=== PATIENT | male | born 1960 | race African-American/Black ===

== ENCOUNTER 2019-03-18 22:13 | Inpatient (IN) ==
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
[2019-03-18] MEDS ORDERED: NS 1000 ML 1,000 ML IV ONE (22:49)
[2019-03-18] MEDS ORDERED: ZOFRAN INJ 4 MG VIAL IVP ONE (22:50)
[2019-03-18] MEDS ORDERED: NS 1000 ML 1,000 ML ONE (22:51)
[2019-03-18] MEDS ORDERED: ZOFRAN INJ 4 MG VIAL ONE (23:02)
[2019-03-18] MEDS ORDERED: ZyrTEC TAB 10 MG ONE (23:02)
[2019-03-18] MEDS ORDERED: ZyrTEC TAB 10 MG PO ONE (23:05)
--- NOTE | 2019-03-18 23:11 | RAD ---
HISTORY: Fever, chills, headache, cough Study: Two views the chest Comparison: None Findings: The trachea is midline. The cardiac silhouette is unremarkable. Coarse interstitial changes are seen within both lungs. No evidence of focal consolidation is appreciated.. IMPRESSION: 1. Interstitial changes without evidence of focal consolidation. Reported By:
[2019-03-18 23:18] LABS: BASOPHILS # (AUTO) 0.1 X10^3/uL (0.0-0.1); BASOPHILS % (AUTO) 0.4 % (0.2-1.0); EOSINOPHILS % (AUTO) 0.1 % (0.9-2.9); HEMATOCRIT 26.7 % (42.0-54.0); HEMOGLOBIN 8.5 g/dL (13.5-18.0); LYMPHOCYTES # (AUTO) 0.9 X10^3/uL (1.3-2.9); LYMPHOCYTES % (AUTO) 4.6 % (21.0-51.0); MEAN CORPUSCULAR HEMOGLOBIN 24.8 pg (27.0-34.0); MEAN CORPUSCULAR HGB CONC 31.7 g/dL (33.0-35.0); MEAN CORPUSCULAR VOLUME 78.4 fL (80.0-100.0); MEAN PLATELET VOLUME 8.3 fL (7.4-11.0); MONOCYTES # (AUTO) 2.6 x10^3/uL (0.3-0.8); MONOCYTES % (AUTO) 13.2 % (0.0-13.0); NEUTROPHILS # (AUTO) 16.1 x10^3/uL (2.2-4.8); NEUTROPHILS % (AUTO) 81.7 % (42.0-75.0); PLATELET COUNT 279 X10^3/uL (150.0-450.0); RED CELL DISTRIBUTION WIDTH 25.2 % (11.6-16.5); WHITE BLOOD COUNT 19.7 X10^3/uL (3.6-10.0)
[2019-03-18 23:19] LABS: BLOOD UREA NITROGEN 12 mg/dL (7-18); CALCIUM 8.9 mg/dL (8.5-10.1); CARBON DIOXIDE 26.1 mmol/L (21-32); CHLORIDE 97 mmol/L (98-107); COR NA(FOR HYPERGLY) 139 mmol/L (136-145); CREATININE 1.11 mg/dL (0.70-1.30); SODIUM 138 mmol/L (136-145); eGFR NON BLACK RACES > 60 (>60)
[2019-03-18 23:27] LABS: HYPOCHROMASIA 1+; PLATELET MORPHOLOGY COMMENT NORMAL (NORMAL)
[2019-03-18 23:28] LABS: ANISOCYTOSIS 3+; OVALOCYTES PRESENT; TARGET CELLS PRESENT
[2019-03-18] MEDS ORDERED: ZITHROMAX INJ 500 MG VIAL ONE (23:32)
[2019-03-18] MEDS ORDERED: NS 250 ML IV 250 ML ONE (23:32)
[2019-03-18] MEDS ORDERED: ROCEPHIN VIAL 1 GRAM IVP ONE (23:32)
[2019-03-18] MEDS ORDERED: ZITHROMAX INJ 500 MG VIAL 500 MG in NS 250 ML IV 250 ML IV SCH (23:45)
[2019-03-18 23:52] LABS: MYCOPLASMA PNEUMONIAE IGM AB NEGATIVE (NEGATIVE)
[2019-03-19] MEDS ORDERED: APLISOL ID ONE ×2 (00:27→21:27)
[2019-03-19 01:29] LABS: LACTIC ACID 1.1 mmol/L (0.4-2.0)
[2019-03-19] MEDS ORDERED: ROCEPHIN VIAL 1 GRAM ONE (01:46)
[2019-03-19] MEDS: NS 1000 ML 1,000 ML IV SCH ×3 (01:51→20:33)
[2019-03-19 02:18] LABS: BILIRUBIN,URINE NEGATIVE (NEGATIVE); BLOOD/HEMOGLOBIN,URINE 2+ (NEGATIVE); GLUCOSE, URINE NEGATIVE (NEGATIVE); KETONES,URINE NEGATIVE (NEGATIVE); LEUKOCYTE ESTERASE ,URINE 1+ (NEGATIVE); NITRITES,URINE NEGATIVE (NEGATIVE); PROTEIN,URINE 2+ (NEGATIVE); UROBILINOGEN,URINE 2+ (NORMAL)
[2019-03-19 02:22] LABS: APPEARANCE,URINE CLEAR (CLEAR); COLOR,URINE AMBER (YELLOW)
[2019-03-19 02:23] LABS: AMORPHOUS SEDIMENT,UR 1+ /HPF (NEGATIVE); BACTERIA,URINE NEGATIVE /HPF (NEGATIVE); RBC,URINE 0-2 /HPF (NONE SEEN); SQUAMOUS EPITHELIAL CELL,UR RARE /HPF (NEGATIVE)
[2019-03-19] MEDS ORDERED: NS 1000 ML 1,000 ML IV ONE (03:47)
[2019-03-19 04:15] VITALS: BMI 21.4
[2019-03-19 06:33] LABS: BASOPHILS % (AUTO) 0.2 % (0.2-1.0); EOSINOPHILS % (AUTO) 0.1 % (0.9-2.9); HEMATOCRIT 21.8 % (42.0-54.0); LYMPHOCYTES % (AUTO) 4.7 % (21.0-51.0); MEAN CORPUSCULAR HEMOGLOBIN 24.9 pg (27.0-34.0); MEAN CORPUSCULAR HGB CONC 31.8 g/dL (33.0-35.0); MEAN CORPUSCULAR VOLUME 78.3 fL (80.0-100.0); MEAN PLATELET VOLUME 8.5 fL (7.4-11.0); MONOCYTES # (AUTO) 3.3 x10^3/uL (0.3-0.8); MONOCYTES % (AUTO) 15.2 % (0.0-13.0); NEUTROPHILS # (AUTO) 17.4 x10^3/uL (2.2-4.8); NEUTROPHILS % (AUTO) 79.8 % (42.0-75.0); PLATELET COUNT 211 X10^3/uL (150.0-450.0); RED BLOOD COUNT 2.79 X10^6/uL (4.7-6.0); RED CELL DISTRIBUTION WIDTH 24.5 % (11.6-16.5); WHITE BLOOD COUNT 21.8 X10^3/uL (3.6-10.0)
[2019-03-19 06:53] LABS: PLATELET MORPHOLOGY COMMENT NORMAL (NORMAL)
[2019-03-19 06:54] LABS: ANISOCYTOSIS 3+; HYPOCHROMASIA SLIGHT
[2019-03-19] MEDS ORDERED: LOPRESSOR TAB 25 MG PO SCH (09:00)
[2019-03-19] MEDS: TYLENOL 325 MG TAB PO PRN ×2 (09:05→20:34)
[2019-03-19] MEDS: VANCOMYCIN HCL 1 GM VIAL 1 G in D5W 250 ML IV 250 ML IV SCH ×2 (09:30→20:33)
[2019-03-19] MEDS: VIBRAMYCIN 100 MG in D5W 250 ML IV 250 ML IV SCH ×2 (11:19→20:33)
--- NOTE | 2019-03-19 11:27 | CT ---
CT SINUSES WITHOUT IV CONTRAST HISTORY: Fever and headache Comparison: None Technique: Multiple axial images of the paranasal sinuses were obtained without the administration of IV contrast. Coronal and sagittal reformats were performed and reviewed. Dose reduction techniques including Automated Exposure Control (AEC) and adjustment of mA and kV were utlized. Findings: The maxillary sinuses, anterior and posterior ethmoid air cells, sphenoid sinuses, and frontal sinuses demonstrate no evidence for mucosal inflammatory disease. The nasal septum is midline. The ostiomeatal unit on the right and left are widely patent without inflammatory change. The left and right frontal recesses are unremarkable in their appearance. Visualized portions of the posterior fossa and intracranial structures are unremarkable as well. IMPRESSION: 1. Unremarkable CT of the paranasal sinuses. Reported By:
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
[2019-03-19] MEDS: LOPRESSOR TAB 25 MG PO SCH (20:34)
[2019-03-19] MEDS: NORCO 5/325 MG TAB PO PRN (21:05)
[2019-03-19] MEDS ORDERED: ZyrTEC TAB 10 MG PO ONE (22:51)
[2019-03-20 05:29] LABS: BASOPHILS # (AUTO) 0.2 X10^3/uL (0.0-0.1); BASOPHILS % (AUTO) 0.7 % (0.2-1.0); EOSINOPHILS % (AUTO) 0.1 % (0.9-2.9); LYMPHOCYTES # (AUTO) 0.7 X10^3/uL (1.3-2.9); LYMPHOCYTES % (AUTO) 2.5 % (21.0-51.0); MEAN CORPUSCULAR HEMOGLOBIN 25.1 pg (27.0-34.0); MEAN CORPUSCULAR VOLUME 78.2 fL (80.0-100.0); MEAN PLATELET VOLUME 8.6 fL (7.4-11.0); MONOCYTES # (AUTO) 3.9 x10^3/uL (0.3-0.8); MONOCYTES % (AUTO) 14.4 % (0.0-13.0); NEUTROPHILS # (AUTO) 22.3 x10^3/uL (2.2-4.8); NEUTROPHILS % (AUTO) 82.3 % (42.0-75.0); PLATELET COUNT 169 X10^3/uL (150.0-450.0); RED BLOOD COUNT 2.47 X10^6/uL (4.7-6.0); RED CELL DISTRIBUTION WIDTH 24.7 % (11.6-16.5); WHITE BLOOD COUNT 27.2 X10^3/uL (3.6-10.0)
[2019-03-20 05:37] LABS: ALANINE AMINOTRANSFERASE 78 Units/L (12-78); ALBUMIN 1.9 g/dL (3.4-5.0); ALKALINE PHOSPHATASE 144 Units/L (46-116); ASPARTATE AMINO TRANSFERASE 63 Units/L (15-37); BLOOD UREA NITROGEN 14 mg/dL (7-18); CARBON DIOXIDE 26.3 mmol/L (21-32); CHLORIDE 101 mmol/L (98-107); COR CA(FOR HYPOALB) 9.7 mg/dL (8.5-10.1); COR NA(FOR HYPERGLY) 137 mmol/L (136-145); CREATININE 1.13 mg/dL (0.70-1.30); SODIUM 137 mmol/L (136-145); eGFR NON BLACK RACES > 60 (>60)
[2019-03-20] MEDS: NS 1000 ML 1,000 ML IV SCH ×3 (05:49→18:14)
[2019-03-20 05:56] LABS: BAND NEUTROPHILS % 17 % (0-10); HEMATOCRIT 19.3 % (42.0-54.0); HEMOGLOBIN 6.2 g/dL (13.5-18.0)
[2019-03-20 05:57] LABS: ANISOCYTOSIS 3+; HYPOCHROMASIA 1+; PLATELET MORPHOLOGY COMMENT NORMAL (NORMAL)
[2019-03-20] MEDS: LOPRESSOR TAB 25 MG PO SCH ×2 (08:31→21:22)
[2019-03-20] MEDS: VANCOMYCIN HCL 1 GM VIAL 1 G in D5W 250 ML IV 250 ML IV SCH ×2 (08:32→21:21)
[2019-03-20] MEDS ORDERED: BENADRYL INJ 50 MG VIAL IVP ONE (10:09)
[2019-03-20] MEDS: TYLENOL 325 MG TAB PO PRN ×2 (10:44→23:23)
[2019-03-20] MEDS ORDERED: NS 500 ML IV 500 ML ONE (10:47)
[2019-03-20] MEDS: VIBRAMYCIN 100 MG in D5W 250 ML IV 250 ML IV SCH ×2 (12:00→21:12)
--- NOTE | 2019-03-20 12:25 | CT ---
HISTORY: Sepsis Study: CT chest with contrast Comparison: None Technique: Multiple axial images of the chest were obtained from the thoracic inlet to the upper abdomen after the administration of IV contrast. Findings: The mediastinum does not demonstrate significant pathological lymphadenopathy. There is no paracardial effusion observed. The thoracic aorta is normal in its contour without evidence for aneurysmal dilatation. The central pulmonary arterial system does not demonstrate central filling defects to suggest pulmonary emboli. Evaluation of the lung parenchyma fails to demonstrate focal consolidation or effusion. No pulmonary nodule or mass can be identified. The bony thorax is unremarkable in its appearance. The visualized portions of the upper abdomen are grossly unremarkable. IMPRESSION: Unremarkable CT of the chest with contrast. Reported By:
[2019-03-20] MEDS ORDERED: NS 250 ML IV 250 ML ONE (15:17)
[2019-03-20 17:42] LABS: CRYPTOSPORIDIUM PARVUM ANTIGEN NEGATIVE (NEGATIVE); GIARDIA LAMBLIA ANTIGEN NEGATIVE (NEGATIVE)
[2019-03-20] MEDS: NORCO 5/325 MG TAB PO PRN (17:49)
[2019-03-20 20:23] LABS: HEMATOCRIT 24.9 % (42.0-54.0); HEMOGLOBIN 8.1 g/dL (13.5-18.0)
[2019-03-20 20:45] LABS: CREATININE 1.06 mg/dL (0.70-1.30); VANCOMYCIN,TROUGH 5.1 ug/mL (15-20)
[2019-03-20] MEDS ORDERED: PHARMACY COMMENT IV SCH (20:45)
[2019-03-21] MEDS: NS 1000 ML 1,000 ML IV SCH ×3 (01:47→17:36)
[2019-03-21 05:33] LABS: BASOPHILS # (AUTO) 0.1 X10^3/uL (0.0-0.1); BASOPHILS % (AUTO) 0.2 % (0.2-1.0); EOSINOPHILS % (AUTO) 0.1 % (0.9-2.9); HEMATOCRIT 24.3 % (42.0-54.0); LYMPHOCYTES # (AUTO) 1.3 X10^3/uL (1.3-2.9); LYMPHOCYTES % (AUTO) 6.4 % (21.0-51.0); MEAN CORPUSCULAR HEMOGLOBIN 25.8 pg (27.0-34.0); MEAN CORPUSCULAR HGB CONC 32.9 g/dL (33.0-35.0); MEAN CORPUSCULAR VOLUME 78.4 fL (80.0-100.0); MONOCYTES # (AUTO) 2.6 x10^3/uL (0.3-0.8); MONOCYTES % (AUTO) 12.7 % (0.0-13.0); NEUTROPHILS # (AUTO) 16.6 x10^3/uL (2.2-4.8); NEUTROPHILS % (AUTO) 80.6 % (42.0-75.0); PLATELET COUNT 178 X10^3/uL (150.0-450.0); RED BLOOD COUNT 3.11 X10^6/uL (4.7-6.0); RED CELL DISTRIBUTION WIDTH 22.8 % (11.6-16.5); WHITE BLOOD COUNT 20.6 X10^3/uL (3.6-10.0)
[2019-03-21 05:40] LABS: ALANINE AMINOTRANSFERASE 60 Units/L (12-78); ALBUMIN 1.8 g/dL (3.4-5.0); ALKALINE PHOSPHATASE 148 Units/L (46-116); ASPARTATE AMINO TRANSFERASE 45 Units/L (15-37); BLOOD UREA NITROGEN 10 mg/dL (7-18); CALCIUM 7.7 mg/dL (8.5-10.1); CARBON DIOXIDE 25.2 mmol/L (21-32); CHLORIDE 103 mmol/L (98-107); COR CA(FOR HYPOALB) 9.5 mg/dL (8.5-10.1); CREATININE 0.96 mg/dL (0.70-1.30); SODIUM 139 mmol/L (136-145); TOTAL PROTEIN 6.5 g/dL (6.4-8.2); eGFR NON BLACK RACES > 60 (>60)
[2019-03-21 06:07] LABS: BAND NEUTROPHILS % 14 % (0-10)
[2019-03-21 06:08] LABS: ANISOCYTOSIS 2+; HYPOCHROMASIA SLIGHT; PLATELET MORPHOLOGY COMMENT NORMAL (NORMAL)
[2019-03-21] MEDS ORDERED: POTASSIUM CHL 60 MEQ/NS 0.45% 500 ML IV PRN (06:15)
[2019-03-21] MEDS ORDERED: POTASSIUM CHLORIDE LIQ 20 MEQ UDC PO PRN (06:15)
[2019-03-21] MEDS ORDERED: K-RIDER 10 MEQ/NS 100 ML 10 MEQ/100 ML BAG IV PRN (06:15)
[2019-03-21] MEDS ORDERED: K-DUR TAB 20 MEQ PO PRN (06:15)
[2019-03-21] MEDS ORDERED: POTASSIUM CHL 40 MEQ/NS 0.45% 500 ML IV PRN (06:15)
[2019-03-21] MEDS: KLOR-CON PO PRN (06:42)
[2019-03-21] MEDS: LOPRESSOR TAB 25 MG PO SCH ×2 (08:49→21:49)
[2019-03-21] MEDS: VIBRAMYCIN 100 MG in D5W 250 ML IV 250 ML IV SCH (08:49)
[2019-03-21] MEDS: VANCOMYCIN HCL 1 GM VIAL 1 G in D5W 250 ML IV 250 ML IV SCH ×2 (08:50→21:49)
[2019-03-21] MEDS: ALBUMIN HUMAN 25%- 100 ML 100 ML IV SCH (11:08)
[2019-03-21] MEDS: TYLENOL 325 MG TAB PO PRN ×2 (12:20→23:15)
[2019-03-21] MEDS: MAGNESIUM SULFATE 1 GRAM/100 mL PREMIX 1 GM/100 ML BAG IV PRN ×2 (14:00→16:02)
[2019-03-21 17:12] LABS: HEMATOCRIT 24.5 % (42.0-54.0); HEMOGLOBIN 8.2 g/dL (13.5-18.0)
--- NOTE | 2019-03-21 20:57 | PCM.PROG ---
Progress Note - Progress Note for Day of Date of Exam: 03/20/19 - Subjective Subjective: WAS ADMITTED EARLY YESTERDAY MORNING FOR SEPSIS. TODAY, HE IS ALERT AND ORIENTED, LYING IN BED ON MORNING ROUNDS. HE REPORTS COMPLAINTS OF FEVER, CONGESTION, AND BILATERAL FOOT PAIN AT HOME. HE REPORTS BEING EXPOSED TO FAMILY MEMBERS WITH BRONCHITS AND INFLUENZA. HE CONTINUES WITH COMPLAINTS OF FOOT PAIN AND CONGESTION TODAY. HE ALSO REPORTS SHORTNESS OF BREATH. HIS VITALS THIS MORNING ARE: 97.8-95-18-96%-99/62. LABS WERE OBTAINED. ABNORMAL LAB VALUES INCLUDE THE FOLLOWING: WBC 27.2, RBC 2.47, HGB 6.2, HCT 19.3, GLUCOSE 116, CALCIUM 8.0, TOTAL BILI 1.70, AST 63, ALK PHOS 144, ALBUMIN 1.9, GLOBULIN 5.1. STOOLS ARE NEGATIVE FOR OCCULT BLOOD, WHITE CELLS, OR C-DIFF. HIV PANEL PENDING. URINE AND BLOOD CULTURES ARE ALSO PENDING. ABDOMEN/PELVIS CT AND SINUS CT WERE OBTAINED YESTERDAY AND WERE NEGATIVE. HE IS CURRENTLY RECEIVING NORMAL SALINE AT 125ML/HR, IV DOXYCYCLINE, AND VANCOMYCIN IV. WE WILL TRANSFUSE TWO UNITS PACKED RED BLOOD CELLS TODAY AND WILL OBTAIN A PSA, CEA, CHEST CT, AND HEPATITIS PANEL. OTHERWISE, WE WILL FOLLOW UP WITH AM LABS AND CONTINUE TO MONITOR. - Past Medical Family Social History Past Med/Fam/Surg Hx: No changes since H&P Allergies: Allergies No Known Drug Allergies Allergy (Verified 03/18/19 22:34) - Review of Systems ROS: No change since H&P - Vital Signs and I&O's Vital Signs: Temperature 97.8 F Pulse Rate [Left Brachial] 111 Pulse Rate [Right Radial] 94 Pulse Rate 113 Respiratory Rate 18 Blood Pressure [Right Arm] 107/61 Blood Pressure [Left Arm] 117/71 Blood Pressure [Left Arm] 100/50 Blood Pressure 100/58 O2 Sat by Pulse Oximetry 97 Intake and Output: Intake & Output 03/19/19 03/20/19 03/21/19 03/22/19 11:59 11:59 11:59 11:59 Intake Total 500 / 500 2782 / 2782 3210 / 3210 900 / 900 Output Total 1300 / 1300 1150 / 1150 300 / 300 Balance 500 / 500 1482 / 1482 2060 / 2060 600 / 600 - Physical Exam Oriented: Normal Eyes: Normal Ear: Normal Nose: Normal Throat: Normal Respiratory: Generalized, Diminished Cardiovascular: Normal : Normal Auscultation: Bowel Sounds: Normal Palpation: Normal Tenderness: Normal Skin: Normal Musculoskeletal: Right, Left, Foot, Tender Psychiatric: Normal Mood Description: Calm Affect: Normal Speech Pattern: Clear, Appropriate - Laboratory and Diagnostics Result Diagrams: 03/21/19 17:04 03/21/19 08:40 Labs: 03/20/19 16:39 Stool Stool Culture - Preliminary 03/20/19 16:39 Stool - Final 03/19/19 01:52 Urine,Clean Catch Urine Culture - Final 03/18/19 23:09 Blood Blood Culture - Preliminary Laboratory WBC 20.6 X10^3/uL (3.6-10.0) H 03/21/19 04:34 RBC 3.11 X10^6/uL (4.7-6.0) L 03/21/19 04:34 Hgb 8.2 g/dL (13.5-18.0) L 03/21/19 17:04 Hct 24.5 % (42.0-54.0) L 03/21/19 17:04 MCV 78.4 fL (80.0-100.0) L 03/21/19 04:34 MCH 25.8 pg (27.0-34.0) L 03/21/19 04:34 MCHC 32.9 g/dL (33.0-35.0) L 03/21/19 04:34 RDW 22.8 % (11.6-16.5) H 03/21/19 04:34 Plt Count 178 X10^3/uL (150.0-450.0) 03/21/19 04:34 Plt Count Comment Adequate (ADEQUATE) 03/21/19 04:34 MPV 9.0 fL (7.4-11.0) 03/21/19 04:34 Neut % (Auto) 80.6 % (42.0-75.0) H 03/21/19 04:34 Lymph % (Auto) 6.4 % (21.0-51.0) L 03/21/19 04:34 [place] % (Auto) 12.7 % (0.0-13.0) 03/21/19 04:34 Eos % (Auto) 0.1 % (0.9-2.9) L 03/21/19 04:34 Baso % (Auto) 0.2 % (0.2-1.0) 03/21/19 04:34 Neut # (Auto) 16.6 x10^3/uL (2.2-4.8) H 03/21/19 04:34 Lymph # (Auto) 1.3 X10^3/uL (1.3-2.9) 03/21/19 04:34 [place] # (Auto) 2.6 x10^3/uL (0.3-0.8) H 03/21/19 04:34 Eos # (Auto) 0.0 x10^3/uL (0.0-0.2) 03/21/19 04:34 Baso # (Auto) 0.1 X10^3/uL (0.0-0.1) 03/21/19 04:34 Absolute Nucleated RBC 0.0 /100WBC 03/21/19 04:34 Total Counted 100 03/21/19 04:34 Neutrophils % (Manual) 69 % (39-76) 03/21/19 04:34 Band Neutrophils % 14 % (0-10) H 03/21/19 04:34 Lymphocytes % (Manual) 8 % (13-43) L 03/21/19 04:34 Monocytes % (Manual) 9 % (4-9) 03/21/19 04:34 Eosinophils % (Manual) 3 % (0-6) 03/19/19 06:10 Plt Morphology Comment Normal (NORMAL) 03/21/19 04:34 RBC Morphology Abnormal (NORMAL) 03/21/19 04:34 Hypochromasia Slight A 03/21/19 04:34 Anisocytosis 2+ A 03/21/19 04:34 Target Cells Present 03/18/19 22:56 Ovalocytes Present 03/18/19 22:56 Sodium 139 mmol/L (136-145) 03/21/19 04:34 Corrected Sodium TNP 03/21/19 04:34 Potassium 3.8 mmol/L (3.5-5.1) 03/21/19 08:40 Chloride 103 mmol/L (98-107) 03/21/19 04:34 Carbon Dioxide 25.2 mmol/L (21-32) 03/21/19 04:34 BUN 10 mg/dL (7-18) 03/21/19 04:34 Creatinine 0.96 mg/dL (0.70-1.30) 03/21/19 04:34 Est GFR (MDRD) Af Amer > 60 (>60) 03/21/19 04:34 Est GFR (MDRD) Non-Af > 60 (>60) 03/21/19 04:34 Glucose 107 mg/dL (65-99) H 03/21/19 04:34 Lactic Acid 1.4 mmol/L (0.4-2.0) 03/20/19 06:30 Calcium 7.7 mg/dL (8.5-10.1) L 03/21/19 04:34 Corrected Calcium 9.5 mg/dL (8.5-10.1) 03/21/19 04:34 Magnesium 1.8 mg/dL (1.7-2.9) 03/21/19 04:34 Iron 8 ug/dL (50-175) L 03/19/19 01:08 Transferrin 129 mg/dL (202-364) L 03/19/19 01:08 Ferritin 1627 ng/mL (26-388) H 03/19/19 01:08 Total Bilirubin 1.70 mg/dL (0.2-1.0) H 03/21/19 04:34 AST 45 Units/L (15-37) H 03/21/19 04:34 ALT 60 Units/L (12-78) 03/21/19 04:34 Alkaline Phosphatase 148 Units/L (46-116) H 03/21/19 04:34 Total Protein 6.5 g/dL (6.4-8.2) 03/21/19 04:34 Albumin 1.8 g/dL (3.4-5.0) L 03/21/19 04:34 Globulin 4.7 g/dL (2.5-4.5) H 03/21/19 04:34 Albumin/Globulin Ratio 0.4 Ratio (1.1-2.1) L 03/21/19 04:34 Total PSA 0.14 ng/mL (0.13-4.0) 03/20/19 06:30 Vitamin B12 916 pg/mL (193-986) 03/19/19 01:08 Folate 15.4 ng/mL (>8.6) 03/19/19 01:08 Total Testosterone Cancelled 03/19/19 01:08 Free Testosterone Calc Cancelled 03/19/19 01:08 % Free Testosterone Cancelled 03/19/19 01:08 Sex Hormone Bind Glob Cancelled 03/19/19 01:08 Specimen Type Clean catch urine 03/19/19 01:52 Urine Color [place] (YELLOW) 03/19/19 01:52 Urine Appearance Clear (CLEAR) 03/19/19 01:52 Urine pH 5.0 (5.0 - 8.0) 03/19/19 01:52 Ur Specific [place] 1.010 (1.000-1.030) 03/19/19 01:52 Urine Protein 2+ (NEGATIVE) 03/19/19 01:52 Urine Glucose (UA) Negative (NEGATIVE) 03/19/19 01:52 Urine Ketones Negative (NEGATIVE) 03/19/19 01:52 Urine Occult Blood 2+ (NEGATIVE) 03/19/19 01:52 Urine Nitrite Negative (NEGATIVE) 03/19/19 01:52 Urine Bilirubin Negative (NEGATIVE) 03/19/19 01:52 Urine Urobilinogen 2+ (NORMAL) 03/19/19 01:52 Ur Leukocyte Esterase 1+ (NEGATIVE) 03/19/19 01:52 Urine RBC 0-2 /HPF (NONE SEEN) 03/19/19 01:52 Urine WBC None seen /HPF (NONE SEEN) 03/19/19 01:52 Ur Squamous Epith Cells Rare /HPF (NEGATIVE) 03/19/19 01:52 Amorphous Sediment 1+ /HPF (NEGATIVE) 03/19/19 01:52 Urine Bacteria Negative /HPF (NEGATIVE) 03/19/19 01:52 Ur Culture Indicated? No/not indicated 03/19/19 01:52 Stool Description 15g,brown,formed 03/20/19 16:39 Stl Occult Blood (IFOB) Negative (NEGATIVE) 03/20/19 16:39 Stool for White Cells Negative (NEGATIVE) 03/20/19 16:39 Stl C. diff Tox B Gene Negative (NEGATIVE) 03/20/19 16:39 Stl C. diff [id number] Negative (NEGATIVE) 03/20/19 16:39 Vancomycin Trough 5.1 ug/mL (15-20) L 03/20/19 20:10 Cryptosporid parvum Ag Negative (NEGATIVE) 03/20/19 16:39 Giardia lamblia Ag Negative (NEGATIVE) 03/20/19 16:39 Influenza Type A (PCR) Negative (NEGATIVE) 03/18/19 23:05 Influenza Type B (PCR) Negative (NEGATIVE) 03/18/19 23:05 Mycoplasma pneumon IgG Negative (NEGATIVE) 03/18/19 22:56 Blood Type B POSITIVE 03/20/19 06:30 Antibody Screen Negative 03/20/19 06:30 Crossmatch See Detail 03/20/19 06:30 - Plan (1) Sepsis Status: Acute Qualifiers: Sepsis type: sepsis due to unspecified organism Sepsis acute organ dysfunction status: without acute organ dysfunction Qualified Code(s): A41.9 - Sepsis, unspecified organism Plan: IV DOXY, IV VANCOMYCIN, IV FLUIDS, CONTINUE TO MONITOR (2) Anemia Status: Acute Qualifiers: Anemia type: unspecified type Qualified Code(s): D64.9 - Anemia, unspecified Plan: TRANSFUSE 2 UNITS PRBC, CONTINUE TO MONITOR
[2019-03-21] MEDS: VIBRAMYCIN 100 MG in NS 100 ML IV 100 ML IV SCH (22:12)
--- NOTE | 2019-03-21 22:25 | PCM.PROG ---
Progress Note - Progress Note for Day of Date of Exam: 03/21/19 - Subjective Subjective: IS BEING TREATED FOR SEPSIS OF UNKNOWN ORIGIN AND ANEMIA. HE RECEIVED TWO UNITS OF PACKED RED BLOOD CELLS YESTERDAY. TODAY, HE IS ALERT AND ORIENTED, LYING IN BED ON MORNING ROUNDS. HE CONTINUES WITH COMPLAINTS OF WEAKNESS, SOB, AND FOOT PAIN. HIS VITALS THIS MORNING ARE: 98.6-111 -18-98%-117/71. LABS WERE OBTAINED. ABNORMAL LAB VALUES INCLUDE THE FOLLOWING: WBC 20.6, RBC 3.11, HGB 8.0, HCT 24.3, POTASSIUM 3.0, GLUCOSE 107, CALCIUM 7.7, TOTAL BILI 1.70, AST 45, ALK PHOS 148, ALBUMIN 1.8, GLOBULIN 4.7. STOOLS ARE NEGATIVE FOR OCCULT BLOOD, WHITE CELLS, OR C-DIFF. HIV AND HEPATITIS PANEL PENDING. URINE AND BLOOD CULTURES ARE ALSO PENDING. CHEST CT WAS OBTAINED YESTERDAY AND IS NEGATIVE. HE IS CURRENTLY RECEIVING IV DOXY AND VANCOMYCIN. WE WILL START ALBUMIN 25% IV DAILY TODAY. OTHERWISE, WE WILL FOLLOW UP WITH AM LABS AND CONTINUE TO MONITOR. - Past Medical Family Social History Past Med/Fam/Surg Hx: No changes since H&P Allergies: Allergies No Known Drug Allergies Allergy (Verified 03/18/19 22:34) - Review of Systems ROS: No change since H&P - Vital Signs and I&O's Vital Signs: Temperature 97.8 F Pulse Rate [Left Brachial] 111 Pulse Rate [Right Radial] 94 Pulse Rate 113 Respiratory Rate 18 Blood Pressure [Right Arm] 107/61 Blood Pressure [Left Arm] 117/71 Blood Pressure [Left Arm] 100/50 Blood Pressure 100/58 O2 Sat by Pulse Oximetry 97 Intake and Output: Intake & Output 03/19/19 03/20/19 03/21/19 03/22/19 11:59 11:59 11:59 11:59 Intake Total 500 / 500 2782 / 2782 3210 / 3210 900 / 900 Output Total 1300 / 1300 1150 / 1150 300 / 300 Balance 500 / 500 1482 / 1482 2060 / 2060 600 / 600 - Physical Exam Oriented: Normal Eyes: Normal Ear: Normal Nose: Normal Throat: Normal Respiratory: Generalized, Diminished Cardiovascular: Normal : Normal Auscultation: Bowel Sounds: Normal Tenderness: Normal Skin: Normal Musculoskeletal: Right, Left, Foot, Tender Psychiatric: Normal Mood Description: Calm Affect: Normal Speech Pattern: Clear, Appropriate - Laboratory and Diagnostics Result Diagrams: 03/21/19 17:04 03/21/19 08:40 Labs: 03/20/19 16:39 Stool Stool Culture - Preliminary 03/20/19 16:39 Stool - Final 03/19/19 01:52 Urine,Clean Catch Urine Culture - Final 03/18/19 23:09 Blood Blood Culture - Preliminary Laboratory WBC 20.6 X10^3/uL (3.6-10.0) H 03/21/19 04:34 RBC 3.11 X10^6/uL (4.7-6.0) L 03/21/19 04:34 Hgb 8.2 g/dL (13.5-18.0) L 03/21/19 17:04 Hct 24.5 % (42.0-54.0) L 03/21/19 17:04 MCV 78.4 fL (80.0-100.0) L 03/21/19 04:34 MCH 25.8 pg (27.0-34.0) L 03/21/19 04:34 MCHC 32.9 g/dL (33.0-35.0) L 03/21/19 04:34 RDW 22.8 % (11.6-16.5) H 03/21/19 04:34 Plt Count 178 X10^3/uL (150.0-450.0) 03/21/19 04:34 Plt Count Comment Adequate (ADEQUATE) 03/21/19 04:34 MPV 9.0 fL (7.4-11.0) 03/21/19 04:34 Neut % (Auto) 80.6 % (42.0-75.0) H 03/21/19 04:34 Lymph % (Auto) 6.4 % (21.0-51.0) L 03/21/19 04:34 [place] % (Auto) 12.7 % (0.0-13.0) 03/21/19 04:34 Eos % (Auto) 0.1 % (0.9-2.9) L 03/21/19 04:34 Baso % (Auto) 0.2 % (0.2-1.0) 03/21/19 04:34 Neut # (Auto) 16.6 x10^3/uL (2.2-4.8) H 03/21/19 04:34 Lymph # (Auto) 1.3 X10^3/uL (1.3-2.9) 03/21/19 04:34 [place] # (Auto) 2.6 x10^3/uL (0.3-0.8) H 03/21/19 04:34 Eos # (Auto) 0.0 x10^3/uL (0.0-0.2) 03/21/19 04:34 Baso # (Auto) 0.1 X10^3/uL (0.0-0.1) 03/21/19 04:34 Absolute Nucleated RBC 0.0 /100WBC 03/21/19 04:34 Total Counted 100 03/21/19 04:34 Neutrophils % (Manual) 69 % (39-76) 03/21/19 04:34 Band Neutrophils % 14 % (0-10) H 03/21/19 04:34 Lymphocytes % (Manual) 8 % (13-43) L 03/21/19 04:34 Monocytes % (Manual) 9 % (4-9) 03/21/19 04:34 Eosinophils % (Manual) 3 % (0-6) 03/19/19 06:10 Plt Morphology Comment Normal (NORMAL) 03/21/19 04:34 RBC Morphology Abnormal (NORMAL) 03/21/19 04:34 Hypochromasia Slight A 03/21/19 04:34 Anisocytosis 2+ A 03/21/19 04:34 Target Cells Present 03/18/19 22:56 Ovalocytes Present 03/18/19 22:56 Sodium 139 mmol/L (136-145) 03/21/19 04:34 Corrected Sodium TNP 03/21/19 04:34 Potassium 3.8 mmol/L (3.5-5.1) 03/21/19 08:40 Chloride 103 mmol/L (98-107) 03/21/19 04:34 Carbon Dioxide 25.2 mmol/L (21-32) 03/21/19 04:34 BUN 10 mg/dL (7-18) 03/21/19 04:34 Creatinine 0.96 mg/dL (0.70-1.30) 03/21/19 04:34 Est GFR (MDRD) Af Amer > 60 (>60) 03/21/19 04:34 Est GFR (MDRD) Non-Af > 60 (>60) 03/21/19 04:34 Glucose 107 mg/dL (65-99) H 03/21/19 04:34 Lactic Acid 1.4 mmol/L (0.4-2.0) 03/20/19 06:30 Calcium 7.7 mg/dL (8.5-10.1) L 03/21/19 04:34 Corrected Calcium 9.5 mg/dL (8.5-10.1) 03/21/19 04:34 Magnesium 1.8 mg/dL (1.7-2.9) 03/21/19 04:34 Iron 8 ug/dL (50-175) L 03/19/19 01:08 Transferrin 129 mg/dL (202-364) L 03/19/19 01:08 Ferritin 1627 ng/mL (26-388) H 03/19/19 01:08 Total Bilirubin 1.70 mg/dL (0.2-1.0) H 03/21/19 04:34 AST 45 Units/L (15-37) H 03/21/19 04:34 ALT 60 Units/L (12-78) 03/21/19 04:34 Alkaline Phosphatase 148 Units/L (46-116) H 03/21/19 04:34 Total Protein 6.5 g/dL (6.4-8.2) 03/21/19 04:34 Albumin 1.8 g/dL (3.4-5.0) L 03/21/19 04:34 Globulin 4.7 g/dL (2.5-4.5) H 03/21/19 04:34 Albumin/Globulin Ratio 0.4 Ratio (1.1-2.1) L 03/21/19 04:34 Total PSA 0.14 ng/mL (0.13-4.0) 03/20/19 06:30 Vitamin B12 916 pg/mL (193-986) 03/19/19 01:08 Folate 15.4 ng/mL (>8.6) 03/19/19 01:08 Total Testosterone Cancelled 03/19/19 01:08 Free Testosterone Calc Cancelled 03/19/19 01:08 % Free Testosterone Cancelled 03/19/19 01:08 Sex Hormone Bind Glob Cancelled 03/19/19 01:08 Specimen Type Clean catch urine 03/19/19 01:52 Urine Color [place] (YELLOW) 03/19/19 01:52 Urine Appearance Clear (CLEAR) 03/19/19 01:52 Urine pH 5.0 (5.0 - 8.0) 03/19/19 01:52 Ur Specific [place] 1.010 (1.000-1.030) 03/19/19 01:52 Urine Protein 2+ (NEGATIVE) 03/19/19 01:52 Urine Glucose (UA) Negative (NEGATIVE) 03/19/19 01:52 Urine Ketones Negative (NEGATIVE) 03/19/19 01:52 Urine Occult Blood 2+ (NEGATIVE) 03/19/19 01:52 Urine Nitrite Negative (NEGATIVE) 03/19/19 01:52 Urine Bilirubin Negative (NEGATIVE) 03/19/19 01:52 Urine Urobilinogen 2+ (NORMAL) 03/19/19 01:52 Ur Leukocyte Esterase 1+ (NEGATIVE) 03/19/19 01:52 Urine RBC 0-2 /HPF (NONE SEEN) 03/19/19 01:52 Urine WBC None seen /HPF (NONE SEEN) 03/19/19 01:52 Ur Squamous Epith Cells Rare /HPF (NEGATIVE) 03/19/19 01:52 Amorphous Sediment 1+ /HPF (NEGATIVE) 03/19/19 01:52 Urine Bacteria Negative /HPF (NEGATIVE) 03/19/19 01:52 Ur Culture Indicated? No/not indicated 03/19/19 01:52 Stool Description 15g,brown,formed 03/20/19 16:39 Stl Occult Blood (IFOB) Negative (NEGATIVE) 03/20/19 16:39 Stool for White Cells Negative (NEGATIVE) 03/20/19 16:39 Stl C. diff Tox B Gene Negative (NEGATIVE) 03/20/19 16:39 Stl C. diff [id number] Negative (NEGATIVE) 03/20/19 16:39 Vancomycin Trough 5.1 ug/mL (15-20) L 03/20/19 20:10 Cryptosporid parvum Ag Negative (NEGATIVE) 03/20/19 16:39 Giardia lamblia Ag Negative (NEGATIVE) 03/20/19 16:39 Influenza Type A (PCR) Negative (NEGATIVE) 03/18/19 23:05 Influenza Type B (PCR) Negative (NEGATIVE) 03/18/19 23:05 Mycoplasma pneumon IgG Negative (NEGATIVE) 03/18/19 22:56 Blood Type B POSITIVE 03/20/19 06:30 Antibody Screen Negative 03/20/19 06:30 Crossmatch See Detail 03/20/19 06:30 - Plan (1) Sepsis Status: Acute Qualifiers: Sepsis type: sepsis due to unspecified organism Sepsis acute organ dysfunction status: without acute organ dysfunction Qualified Code(s): A41.9 - Sepsis, unspecified organism Plan: IV DOXY, IV VANCOMYCIN, IV FLUIDS, CONTINUE TO MONITOR (2) Anemia Status: Acute Qualifiers: Anemia type: unspecified type Qualified Code(s): D64.9 - Anemia, unspecified Plan: TRANSFUSE 2 UNITS PRBC, CONTINUE TO MONITOR
[2019-03-22] MEDS: NS 1000 ML 1,000 ML IV SCH ×4 (01:39→18:43)
[2019-03-22 05:18] LABS: BASOPHILS % (AUTO) 0.3 % (0.2-1.0); EOSINOPHILS % (AUTO) 0.4 % (0.9-2.9); HEMATOCRIT 23.6 % (42.0-54.0); HEMOGLOBIN 7.6 g/dL (13.5-18.0); LYMPHOCYTES # (AUTO) 1.6 X10^3/uL (1.3-2.9); MEAN CORPUSCULAR HEMOGLOBIN 25.4 pg (27.0-34.0); MEAN CORPUSCULAR HGB CONC 32.3 g/dL (33.0-35.0); MEAN CORPUSCULAR VOLUME 78.6 fL (80.0-100.0); MEAN PLATELET VOLUME 8.9 fL (7.4-11.0); MONOCYTES # (AUTO) 1.1 x10^3/uL (0.3-0.8); MONOCYTES % (AUTO) 8.7 % (0.0-13.0); NEUTROPHILS # (AUTO) 10.3 x10^3/uL (2.2-4.8); NEUTROPHILS % (AUTO) 78.6 % (42.0-75.0); PLATELET COUNT 193 X10^3/uL (150.0-450.0); RED CELL DISTRIBUTION WIDTH 23.1 % (11.6-16.5); WHITE BLOOD COUNT 13.1 X10^3/uL (3.6-10.0)
[2019-03-22 05:33] LABS: ALANINE AMINOTRANSFERASE 65 Units/L (12-78); ALKALINE PHOSPHATASE 149 Units/L (46-116); ASPARTATE AMINO TRANSFERASE 55 Units/L (15-37); BLOOD UREA NITROGEN 8 mg/dL (7-18); CALCIUM 8.2 mg/dL (8.5-10.1); CARBON DIOXIDE 24.6 mmol/L (21-32); CHLORIDE 106 mmol/L (98-107); COR CA(FOR HYPOALB) 9.8 mg/dL (8.5-10.1); CREATININE 0.82 mg/dL (0.70-1.30); MAGNESIUM 1.9 mg/dL (1.7-2.9); SODIUM 141 mmol/L (136-145); TOTAL PROTEIN 6.7 g/dL (6.4-8.2); URIC ACID 2.9 mg/dL (3.5-7.2); eGFR NON BLACK RACES > 60 (>60)
[2019-03-22 05:57] LABS: ANISOCYTOSIS 2+; HYPOCHROMASIA 1+; PLATELET MORPHOLOGY COMMENT NORMAL (NORMAL); TARGET CELLS PRESENT
[2019-03-22] MEDS: KLOR-CON PO PRN (05:59)
[2019-03-22 08:31] LABS: CREATININE 0.89 mg/dL (0.70-1.30)
[2019-03-22 08:43] LABS: VANCOMYCIN,TROUGH 4.7 ug/mL (15-20)
[2019-03-22] MEDS: LOPRESSOR TAB 25 MG PO SCH ×2 (09:41→21:15)
[2019-03-22] MEDS: VIBRAMYCIN 100 MG in NS 100 ML IV 100 ML IV SCH ×2 (09:42→20:00)
[2019-03-22] MEDS: ALBUMIN HUMAN 25%- 100 ML 100 ML IV SCH (09:42)
[2019-03-22] MEDS: VANCOMYCIN HCL 1 GM VIAL 1 G in D5W 250 ML IV 250 ML IV SCH ×2 (09:42→21:45)
[2019-03-22] MEDS: FLONASE NASAL SPRAY ENOSTRIL SCH (14:58)
[2019-03-22] MEDS: TYLENOL 325 MG TAB PO PRN (16:30)
[2019-03-22 20:41] LABS: CREATININE 0.94 mg/dL (0.70-1.30); VANCOMYCIN,TROUGH 4.4 ug/mL (15-20)
[2019-03-22] MEDS ORDERED: VANCOMYCIN HCL 500 MG VIAL 500 MG in D5W 100 ML IV 100 ML IV ONE (23:30)
[2019-03-22] MEDS ORDERED: PHARMACY CONSULT - VANCOMYCIN XX SCH (23:45)
[2019-03-23] MEDS: NS 1000 ML 1,000 ML IV SCH ×5 (01:11→22:18)
[2019-03-23] MEDS: TYLENOL 325 MG TAB PO PRN (03:44)
[2019-03-23 05:37] LABS: ALANINE AMINOTRANSFERASE 65 Units/L (12-78); ALBUMIN 2.1 g/dL (3.4-5.0); ALKALINE PHOSPHATASE 140 Units/L (46-116); ASPARTATE AMINO TRANSFERASE 46 Units/L (15-37); BLOOD UREA NITROGEN 8 mg/dL (7-18); CALCIUM 8.1 mg/dL (8.5-10.1); CARBON DIOXIDE 23.2 mmol/L (21-32); CHLORIDE 105 mmol/L (98-107); COR CA(FOR HYPOALB) 9.6 mg/dL (8.5-10.1); CREATININE 0.88 mg/dL (0.70-1.30); SODIUM 139 mmol/L (136-145); TOTAL PROTEIN 6.8 g/dL (6.4-8.2); eGFR NON BLACK RACES > 60 (>60)
[2019-03-23] MEDS: VANCOMYCIN HCL 1 GM VIAL 1 G in D5W 250 ML IV 250 ML IV SCH ×3 (05:49→21:26)
[2019-03-23 06:32] LABS: BASOPHILS % (AUTO) 0.6 % (0.2-1.0); EOSINOPHILS # (AUTO) 0.1 x10^3/uL (0.0-0.2); EOSINOPHILS % (AUTO) 1.3 % (0.9-2.9); HEMATOCRIT 23.1 % (42.0-54.0); HEMOGLOBIN 7.6 g/dL (13.5-18.0); LYMPHOCYTES # (AUTO) 1.6 X10^3/uL (1.3-2.9); LYMPHOCYTES % (AUTO) 19.5 % (21.0-51.0); MEAN CORPUSCULAR HEMOGLOBIN 25.7 pg (27.0-34.0); MEAN CORPUSCULAR HGB CONC 32.9 g/dL (33.0-35.0); MEAN CORPUSCULAR VOLUME 78.1 fL (80.0-100.0); MEAN PLATELET VOLUME 9.5 fL (7.4-11.0); MONOCYTES # (AUTO) 0.8 x10^3/uL (0.3-0.8); MONOCYTES % (AUTO) 9.8 % (0.0-13.0); NEUTROPHILS # (AUTO) 5.5 x10^3/uL (2.2-4.8); NEUTROPHILS % (AUTO) 68.8 % (42.0-75.0); PLATELET COUNT 216 X10^3/uL (150.0-450.0); RED BLOOD COUNT 2.96 X10^6/uL (4.7-6.0); RED CELL DISTRIBUTION WIDTH 23.2 % (11.6-16.5); WHITE BLOOD COUNT 8.1 X10^3/uL (3.6-10.0)
[2019-03-23 06:54] LABS: ANISOCYTOSIS 2+; HYPOCHROMASIA 1+; PLATELET MORPHOLOGY COMMENT NORMAL (NORMAL)
[2019-03-23] MEDS: LOPRESSOR TAB 25 MG PO SCH ×2 (09:11→21:21)
[2019-03-23] MEDS: ALBUMIN HUMAN 25%- 100 ML 100 ML IV SCH (09:11)
[2019-03-23] MEDS: VIBRAMYCIN 100 MG in NS 100 ML IV 100 ML IV SCH ×2 (09:11→21:21)
[2019-03-23] MEDS: FLONASE NASAL SPRAY ENOSTRIL SCH (09:12)
[2019-03-23 09:54] LABS: RHEUMATOID FACTOR NEGATIVE (NEGATIVE)
[2019-03-23] MEDS ORDERED: COZAAR PO SCH (10:00)
[2019-03-23] MEDS: MICRO K EXTEN CAP 10 MEQ PO PRN ×2 (12:26→12:27)
[2019-03-23] MEDS: MAGNESIUM SULFATE 1 GRAM/100 mL PREMIX 1 GM/100 ML BAG IV PRN (23:35)
[2019-03-24] MEDS: NS 1000 ML 1,000 ML IV SCH ×3 (02:22→17:37)
[2019-03-24] MEDS ORDERED: PHARMACY COMMENT IV NR (05:30)
[2019-03-24 05:51] LABS: BASOPHILS % (AUTO) 0.4 % (0.2-1.0); EOSINOPHILS # (AUTO) 0.1 x10^3/uL (0.0-0.2); EOSINOPHILS % (AUTO) 1.9 % (0.9-2.9); HEMATOCRIT 23.5 % (42.0-54.0); HEMOGLOBIN 7.8 g/dL (13.5-18.0); LYMPHOCYTES # (AUTO) 1.4 X10^3/uL (1.3-2.9); MEAN CORPUSCULAR HEMOGLOBIN 25.9 pg (27.0-34.0); MEAN CORPUSCULAR HGB CONC 33.3 g/dL (33.0-35.0); MEAN CORPUSCULAR VOLUME 77.8 fL (80.0-100.0); MEAN PLATELET VOLUME 9.1 fL (7.4-11.0); MONOCYTES # (AUTO) 0.8 x10^3/uL (0.3-0.8); MONOCYTES % (AUTO) 13.4 % (0.0-13.0); NEUTROPHILS # (AUTO) 3.6 x10^3/uL (2.2-4.8); NEUTROPHILS % (AUTO) 60.3 % (42.0-75.0); PLATELET COUNT 220 X10^3/uL (150.0-450.0); RED BLOOD COUNT 3.03 X10^6/uL (4.7-6.0); RED CELL DISTRIBUTION WIDTH 23.5 % (11.6-16.5)
[2019-03-24 05:55] LABS: ALANINE AMINOTRANSFERASE 57 Units/L (12-78); ALBUMIN 2.2 g/dL (3.4-5.0); ALKALINE PHOSPHATASE 126 Units/L (46-116); ASPARTATE AMINO TRANSFERASE 38 Units/L (15-37); BLOOD UREA NITROGEN 8 mg/dL (7-18); CALCIUM 8.2 mg/dL (8.5-10.1); CARBON DIOXIDE 26.3 mmol/L (21-32); CHLORIDE 104 mmol/L (98-107); COR CA(FOR HYPOALB) 9.6 mg/dL (8.5-10.1); CREATININE 0.78 mg/dL (0.70-1.30); SODIUM 141 mmol/L (136-145); VANCOMYCIN,TROUGH 8.9 ug/mL (15-20); eGFR NON BLACK RACES > 60 (>60)
[2019-03-24] MEDS: VANCOMYCIN HCL 1 GM VIAL 1 G in D5W 250 ML IV 250 ML IV SCH ×3 (05:59→23:00)
[2019-03-24 06:20] LABS: PLATELET MORPHOLOGY COMMENT NORMAL (NORMAL)
[2019-03-24 06:21] LABS: ANISOCYTOSIS 2+; HYPOCHROMASIA 1+; TARGET CELLS PRESENT
[2019-03-24] MEDS: KLOR-CON PO PRN (06:29)
[2019-03-24 06:54] LABS: HEPATITIS B SURFACE ANTIGEN Negative (Negative)
[2019-03-24] MEDS ORDERED: DEPO-TESTOSTERONE IM ONE (08:42)
[2019-03-24] MEDS: ALBUMIN HUMAN 25%- 100 ML 100 ML IV SCH (09:08)
[2019-03-24] MEDS: VIBRAMYCIN 100 MG in NS 100 ML IV 100 ML IV SCH ×2 (09:08→22:00)
[2019-03-24] MEDS: FLONASE NASAL SPRAY ENOSTRIL SCH (09:10)
[2019-03-24 09:20] LABS: CHOL/HDL RATIO 7.4 (0.0-5.0)
[2019-03-24] MEDS: COZAAR PO SCH (09:50)
[2019-03-24] MEDS: LOPRESSOR TAB 25 MG PO SCH ×2 (09:50→21:43)
[2019-03-24] MEDS: MAGNESIUM SULFATE 1 GRAM/100 mL PREMIX 1 GM/100 ML BAG IV PRN ×2 (13:00→14:08)
[2019-03-24 14:23] LABS: CREATININE,URINE 35.47 mg/dL (40-278); TOTAL PROTEIN,URINE 7.6 mg/dl (0-11.9)
[2019-03-24 14:25] LABS: CREATININE 24 HOUR,URINE 2.06 g/24 hr (0.87-2.41)
[2019-03-24 14:49] LABS: CREATININE 0.8 mg/dL (0.70-1.30); CREATININE CLEARANCE,URINE 179.3 ml/min (87-107); CREATININE,URINE 35.47 mg/dL (40-278)
--- NOTE | 2019-03-24 15:47 | US ---
History: Elevated LFTs Study: Ultrasound of the liver and right upper quadrant of the abdomen Findings: The right lobe of the liver measures 17.19 cm length without focal mass demonstrated. There is appropriate flow in the portal and in the hepatic veins. There is normal echogenicity The gallbladder is normal in size without wall thickening or stone or sludge. The common hepatic duct measures 2.3 mm diameter. The right kidney measures 10.63 cm sagittal length without mass or hydronephrosis. There is is tib index is normal, 0.66. There is no aortic aneurysm. There is no free fluid. The visualized pancreas is unremarkable. Impression: Negative Reported By:
[2019-03-25] MEDS: NS 1000 ML 1,000 ML IV SCH ×3 (03:47→09:24)
[2019-03-25] MEDS: VANCOMYCIN HCL 1 GM VIAL 1 G in D5W 250 ML IV 250 ML IV SCH (06:17)
[2019-03-25 06:49] LABS: ANTI-NUCLEAR ANTIBODY TEST None Detected (None Detected)
[2019-03-25] MEDS: ALBUMIN HUMAN 25%- 100 ML 100 ML IV SCH (09:17)
[2019-03-25] MEDS: VIBRAMYCIN 100 MG in NS 100 ML IV 100 ML IV SCH (09:17)
[2019-03-25] MEDS: LOPRESSOR TAB 25 MG PO SCH (09:19)
[2019-03-25] MEDS: COZAAR PO SCH (09:20)
[2019-03-25] MEDS: FLONASE NASAL SPRAY ENOSTRIL SCH (09:20)
[2019-03-25 12:30] VITALS: BP 142/75
== END 2019-03-25 12:30 | disposition home or self-care (01) | DRG 864 ==
LOC: ER 22:31 → MED/SURG 03-19 00:57
PROVIDERS: ADMIT Obstetrics & Gynecology Obstetrics; ATTEND Obstetrics & Gynecology Obstetrics
DX: I10 Essential (primary) hypertension; R50.9 Fever, unspecified; D64.9 Anemia, unspecified; E29.1 Testicular hypofunction; R31.9 Hematuria, unspecified; R80.9 Proteinuria, unspecified; D72.828 Other elevated white blood cell count; D56.1 Beta thalassemia
CPT/HCPCS: 36415; 36430; 70486; 71020; 71046; 71260; 74177; 76705; 80048; 80053; 80061; 80074; 80202; 81001; 81050; 82270; 82378; 82565; 82570; 82607; 82670; 82728; 82746; 83020; 83021; 83540; 83605; 83630; 83735; 84132; 84153; 84157; 84270; 84402; 84403; 84443; 84466; 84550; 85014; 85018; 85025; 86038; 86060; 86308; 86430; 86701; 86703; 86738; 86850; 86900; 86901; 86922; 87040; 87045; 87086; 87328; 87329; 87389; 87427; 87449; 87493; 87502; 87899; 96365; 96367; 96374; 96375; 99284; A4222; P9016; P9047; J0456; J0696; J1200; J2405; J3370; J3475; J3490; J7030; J7050; J7060

== ENCOUNTER 2019-03-28 17:41 | Inpatient (IN) ==
[2019-03-28 18:01] VITALS: BMI 21.0
[2019-03-28] MEDS ORDERED: NS 1000 ML 1,000 ML IV ONE (18:22)
[2019-03-28] MEDS ORDERED: NS 1000 ML 1,000 ML ONE ×2 (18:22→19:28)
--- NOTE | 2019-03-28 18:26 | DR.FEVERAD ---
HPI - Time seen Time seen: 18:23 - PCP Primary Care Physician: EDDIE - HPI Comment HPI Comment: 58 y/o released from here now here because of waking with fevers, chills, worsening cough this am; he has felt relatively well since disc harge until now; no abd pain, nausea or vomiting or diarrhea; he has constipation; he last took aleve around noon; he's lost 12 lbs since early spring; he's had recent colonoscopy which was negative and workup during previous admission did not delineate cause for fever. - Complaints/Symptoms Chief Complaint:: PT C/O FEVER, WEAKNESS, CHILLS, COUGHING, SOB. PT STATES HE WAS IN THE HOSPITAL RECENTLY AND WAS DISCHARGED THIS PAST FRIDAY. PT STATES HE WAS TOLD HE HAD SOME TYPE OF INFECTION THAT COULD NOT BE PIN POINTED AND TO COME BACK IF HIS SYMPTOMS WORSENED. PT STATES HE STARTED BACK RUNNING HIGH FEVER THIS MORNING. Self Treatment fo Chief Complaint: MOTRIN THIS AM AND ALEIVE AT 1200 - Source History Provided: Patient - Mode of Arrival Mode of Arrival: Wheelchair - Timing Onset of Chief Complaint: 03/28/19 PMH - PMH Past Medical History: Yes Past Medical History: Hypertension Past Surgical History: Yes Surgical History: Abdominal Surgery, Tonsillectomy - Family History History of Family Medical Conditions: Yes Family Medical History: Cancer, Hypertension - Social History Does any household member use tobacco: Yes Alcohol Use: None Do you use any recreational Drugs:: No Lives With: Family Lives Where: Home - infectious screening In the last 2 months have you had wt loss of >10#?: NO Have you had fever, night sweats or hemotysis?: No Have you traveled outside the country in the last 6 months?: No Isolation: Standard ROS - Review of Systems Constitutional: See HPI, Chills, Fever, Malaise, Weakness Eyes: No Symptoms Reported ENTM: No Symptoms Reported Respiratoy: See HPI, Short of Breath Cardiovascular: No Symptoms Reported Gastrointestinal/Abdominal: See HPI, Constipation Genitourinary: No Symptoms Reported Neurological: No Symptoms Reported Musculoskeletal: No Symptoms Reported Integumentary: No Symptoms Reported Hematologic/Lymphatic: No Symptoms Reported Endocrine: See HPI, Unexplained Weight Loss Psychiatric: No Symptoms Reported PE - General Limitations: No Limitations General Appearance: Alert, Other (thin) - Head Head Exam: Normal Inspection, Atraumatic - Eyes Eye exam: Normal Appearance, PERRL, EOMI - ENT ENT Exam: Normal Exam External Ear Exam: Normal External Inspection - Neck Neck Exam: Normal Inspection, Full ROM - Respiratory Respiratory Exam: Normal Lung Sounds Bilat - Cardiovascular Cardiovascular Exam: Regular Rate, Normal Rhythm - Abdominal Exam Abdominal Exam: Normal Inspection, Normal Bowel Sounds, Soft - Extremities Extremities Exam: Normal Inspection, Full ROM - Neurologic Neurological Exam: Alert, Oriented X3, CN II-XII Intact - Psychiatric Psychiatric Exam: Flat Affect - Skin Skin Exam: Intact - Vital Signs Vitals: Temperature 103.5 F Pulse Rate 129 Respiratory Rate 18 Blood Pressure [Right Arm] 134/79 Blood Pressure [Left Arm] 142/75 Blood Pressure [Left Arm] 100/50 Blood Pressure 123/56 O2 Sat by Pulse Oximetry 98 Course - Reevaluation 1st: Improved - Consultation Called: 19:55 (Dr Padilla accepts pt for Dr Sears) ROR - Labs Reviewed Result Diagrams: 03/28/19 18:15 03/28/19 18:15 - Labs Reviewed Laboratory: WBC 15.3 X10^3/uL (3.6-10.0) H 03/28/19 18:15 RBC 3.30 X10^6/uL (4.7-6.0) L 03/28/19 18:15 Hgb 8.2 g/dL (13.5-18.0) L 03/28/19 18:15 Hct 25.0 % (42.0-54.0) L 03/28/19 18:15 MCV 75.8 fL (80.0-100.0) L 03/28/19 18:15 MCH 24.8 pg (27.0-34.0) L 03/28/19 18:15 MCHC 32.8 g/dL (33.0-35.0) L 03/28/19 18:15 RDW 23.9 % (11.6-16.5) H 03/28/19 18:15 Plt Count 235 X10^3/uL (150.0-450.0) 03/28/19 18:15 Plt Count Comment Adequate (ADEQUATE) 03/28/19 18:15 MPV 8.1 fL (7.4-11.0) 03/28/19 18:15 Neut % (Auto) 88.5 % (42.0-75.0) H 03/28/19 18:15 Lymph % (Auto) 4.7 % (21.0-51.0) L 03/28/19 18:15 [place] % (Auto) 6.5 % (0.0-13.0) 03/28/19 18:15 Eos % (Auto) 0.1 % (0.9-2.9) L 03/28/19 18:15 Baso % (Auto) 0.2 % (0.2-1.0) 03/28/19 18:15 Neut # (Auto) 13.5 x10^3/uL (2.2-4.8) H 03/28/19 18:15 Lymph # (Auto) 0.7 X10^3/uL (1.3-2.9) L 03/28/19 18:15 [place] # (Auto) 1.0 x10^3/uL (0.3-0.8) H 03/28/19 18:15 Eos # (Auto) 0.0 x10^3/uL (0.0-0.2) 03/28/19 18:15 Baso # (Auto) 0.0 X10^3/uL (0.0-0.1) 03/28/19 18:15 Absolute Nucleated RBC 0.0 /100WBC 03/28/19 18:15 Plt Morphology Comment Normal (NORMAL) 03/28/19 18:15 RBC Morphology Abnormal (NORMAL) 03/28/19 18:15 Hypochromasia Slight A 03/28/19 18:15 Poikilocytosis Slight A 03/28/19 18:15 Anisocytosis Slight A 03/28/19 18:15 Ovalocytes Slight A 03/28/19 18:15 Sodium 130 mmol/L (136-145) L 03/28/19 18:15 Corrected Sodium 130 mmol/L (136-145) L 03/28/19 18:15 Potassium 3.9 mmol/L (3.5-5.1) 03/28/19 18:15 Chloride 94 mmol/L (98-107) L 03/28/19 18:15 Carbon Dioxide 24.3 mmol/L (21-32) 03/28/19 18:15 BUN 14 mg/dL (7-18) 03/28/19 18:15 Creatinine 1.26 mg/dL (0.70-1.30) 03/28/19 18:15 Est GFR (MDRD) Af Amer > 60 (>60) 03/28/19 18:15 Est GFR (MDRD) Non-Af > 60 (>60) 03/28/19 18:15 Glucose 113 mg/dL (65-99) H 03/28/19 18:15 Lactic Acid 1.4 mmol/L (0.4-2.0) 03/28/19 18:15 Calcium 8.9 mg/dL (8.5-10.1) 03/28/19 18:15 Corrected Calcium 9.6 mg/dL (8.5-10.1) 03/28/19 18:15 Total Bilirubin 1.40 mg/dL (0.2-1.0) H 03/28/19 18:15 AST 66 Units/L (15-37) H 03/28/19 18:15 ALT 79 Units/L (12-78) H 03/28/19 18:15 Alkaline Phosphatase 208 Units/L (46-116) H 03/28/19 18:15 Total Protein 8.5 g/dL (6.4-8.2) H 03/28/19 18:15 Albumin 3.1 g/dL (3.4-5.0) L 03/28/19 18:15 Globulin 5.4 g/dL (2.5-4.5) H 03/28/19 18:15 Albumin/Globulin Ratio 0.6 Ratio (1.1-2.1) L 03/28/19 18:15 Opioid - Opioid Risk Tool Family Hx of Substance Abuse: Alcohol Age (Antony box if 16-45): No History of Preadolescent Sexual Abuse: No Total: 0 Total Score Risk Category: Low Risk - Diagnosis Discharge Problem: Fever of unknown origin, Recurrent fever, cause unknown, Hyponatremia, Dehydration, Neutrophilic leukocytosis - Discharge Plan Disposition: 09 ADMITTED INPATIENT Condition: Stable - Follow ups/Referrals Follow ups/Referrals: ANGELA CHUNG [Primary Care Provider] - 3 days - Instructions Instructions: Fever, Adult Additional Notes - Additional Notes Additional Notes: pt finishing last dose of levaquin after multiple abx and negative work up just last week; will not add additional abx at this time; repeat bc, obtain hepatitis panel which appears not to have been completed and get echo.
[2019-03-28 18:40] LABS: ALANINE AMINOTRANSFERASE 79 Units/L (12-78); ALBUMIN 3.1 g/dL (3.4-5.0); ALKALINE PHOSPHATASE 208 Units/L (46-116); ASPARTATE AMINO TRANSFERASE 66 Units/L (15-37); BLOOD UREA NITROGEN 14 mg/dL (7-18); CALCIUM 8.9 mg/dL (8.5-10.1); CARBON DIOXIDE 24.3 mmol/L (21-32); CHLORIDE 94 mmol/L (98-107); COR CA(FOR HYPOALB) 9.6 mg/dL (8.5-10.1); COR NA(FOR HYPERGLY) 130 mmol/L (136-145); CREATININE 1.26 mg/dL (0.70-1.30); SODIUM 130 mmol/L (136-145); TOTAL PROTEIN 8.5 g/dL (6.4-8.2); eGFR NON BLACK RACES > 60 (>60)
[2019-03-28 18:41] LABS: BASOPHILS % (AUTO) 0.2 % (0.2-1.0); EOSINOPHILS % (AUTO) 0.1 % (0.9-2.9); HEMOGLOBIN 8.2 g/dL (13.5-18.0); LYMPHOCYTES # (AUTO) 0.7 X10^3/uL (1.3-2.9); LYMPHOCYTES % (AUTO) 4.7 % (21.0-51.0); MEAN CORPUSCULAR HEMOGLOBIN 24.8 pg (27.0-34.0); MEAN CORPUSCULAR HGB CONC 32.8 g/dL (33.0-35.0); MEAN CORPUSCULAR VOLUME 75.8 fL (80.0-100.0); MEAN PLATELET VOLUME 8.1 fL (7.4-11.0); MONOCYTES % (AUTO) 6.5 % (0.0-13.0); NEUTROPHILS # (AUTO) 13.5 x10^3/uL (2.2-4.8); NEUTROPHILS % (AUTO) 88.5 % (42.0-75.0); PLATELET COUNT 235 X10^3/uL (150.0-450.0); RED CELL DISTRIBUTION WIDTH 23.9 % (11.6-16.5); WHITE BLOOD COUNT 15.3 X10^3/uL (3.6-10.0)
--- NOTE | 2019-03-28 18:42 | RAD ---
HISTORY: Fever, chills, and cough. Study: PA and lateral chest. Comparison: CT chest dated March 20, 2019 and chest x-ray dated March 18, 2019. Findings: The trachea is midline. The cardiac silhouette is unremarkable. No obvious focal consolidation, pleural effusion, or pneumothorax. The bony thorax is unremarkable. IMPRESSION: No acute cardiopulmonary disease. Reported By:
[2019-03-28 18:43] LABS: LACTIC ACID 1.4 mmol/L (0.4-2.0)
[2019-03-28 18:46] LABS: ANISOCYTOSIS SLIGHT; HYPOCHROMASIA SLIGHT; OVALOCYTES SLIGHT; PLATELET MORPHOLOGY COMMENT NORMAL (NORMAL); POIKILOCYTOSIS SLIGHT
[2019-03-28] MEDS ORDERED: TYLENOL 500 MG TAB EXTRA STRENGTH PO ONE ×2 (18:50→18:51)
[2019-03-28] MEDS ORDERED: MOTRIN TAB 600 MG PO PRN (19:51)
[2019-03-28] MEDS: NS 1000 ML 1,000 ML IV SCH (20:10)
[2019-03-28] MEDS: COLACE CAP 100 MG PO SCH (22:20)
[2019-03-28] MEDS: MILK OF MAGNESIA PO SCH (22:20)
[2019-03-28 22:57] LABS: BILIRUBIN,URINE NEGATIVE (NEGATIVE); BLOOD/HEMOGLOBIN,URINE NEGATIVE (NEGATIVE); GLUCOSE, URINE NEGATIVE (NEGATIVE); KETONES,URINE NEGATIVE (NEGATIVE); LEUKOCYTE ESTERASE ,URINE 1+ (NEGATIVE); NITRITES,URINE NEGATIVE (NEGATIVE); PROTEIN,URINE 1+ (NEGATIVE); UROBILINOGEN,URINE 1+ (NORMAL)
[2019-03-28 23:02] LABS: APPEARANCE,URINE CLEAR (CLEAR); COLOR,URINE YELLOW (YELLOW); RBC,URINE NONE SEEN /HPF (0-3)
[2019-03-28 23:03] LABS: BACTERIA,URINE NEGATIVE /HPF (NEGATIVE); SQUAMOUS EPITHELIAL CELL,UR NEGATIVE /HPF (NEGATIVE)
[2019-03-29] MEDS: NS 1000 ML 1,000 ML IV SCH ×3 (03:27→21:03)
[2019-03-29] MEDS: TYLENOL 325 MG TAB PO PRN ×3 (04:20→18:01)
[2019-03-29 04:51] LABS: BASOPHILS # (AUTO) 0.1 X10^3/uL (0.0-0.1); BASOPHILS % (AUTO) 0.6 % (0.2-1.0); HEMATOCRIT 22.6 % (42.0-54.0); HEMOGLOBIN 7.4 g/dL (13.5-18.0); LYMPHOCYTES # (AUTO) 0.5 X10^3/uL (1.3-2.9); LYMPHOCYTES % (AUTO) 2.9 % (21.0-51.0); MEAN CORPUSCULAR HEMOGLOBIN 25.1 pg (27.0-34.0); MEAN CORPUSCULAR HGB CONC 32.9 g/dL (33.0-35.0); MEAN CORPUSCULAR VOLUME 76.3 fL (80.0-100.0); MEAN PLATELET VOLUME 7.8 fL (7.4-11.0); MONOCYTES # (AUTO) 0.5 x10^3/uL (0.3-0.8); MONOCYTES % (AUTO) 3.3 % (0.0-13.0); NEUTROPHILS # (AUTO) 15.3 x10^3/uL (2.2-4.8); NEUTROPHILS % (AUTO) 93.2 % (42.0-75.0); PLATELET COUNT 206 X10^3/uL (150.0-450.0); RED BLOOD COUNT 2.96 X10^6/uL (4.7-6.0); RED CELL DISTRIBUTION WIDTH 23.5 % (11.6-16.5); WHITE BLOOD COUNT 16.4 X10^3/uL (3.6-10.0)
[2019-03-29 05:07] LABS: ANISOCYTOSIS 1+; HYPOCHROMASIA 1+; PLATELET MORPHOLOGY COMMENT NORMAL (NORMAL); POIKILOCYTOSIS SLIGHT
[2019-03-29 05:08] LABS: OVALOCYTES SLIGHT; TOXIC GRANULATION SLIGHT
[2019-03-29 05:10] LABS: ALANINE AMINOTRANSFERASE 63 Units/L (12-78); ALBUMIN 2.6 g/dL (3.4-5.0); ALKALINE PHOSPHATASE 182 Units/L (46-116); ASPARTATE AMINO TRANSFERASE 43 Units/L (15-37); BLOOD UREA NITROGEN 14 mg/dL (7-18); CALCIUM 8.3 mg/dL (8.5-10.1); CARBON DIOXIDE 23.2 mmol/L (21-32); CHLORIDE 100 mmol/L (98-107); COR CA(FOR HYPOALB) 9.4 mg/dL (8.5-10.1); COR NA(FOR HYPERGLY) 135 mmol/L (136-145); CREATININE 1.03 mg/dL (0.70-1.30); SODIUM 135 mmol/L (136-145); TOTAL PROTEIN 7.8 g/dL (6.4-8.2); eGFR NON BLACK RACES > 60 (>60)
[2019-03-29 08:43] LABS: AMYLASE 69 Units/L (25-115); LIPASE 58 Units/L (73-393)
[2019-03-29] MEDS ORDERED: PHENERGAN INJ 25 MG IM PRN (08:51)
[2019-03-29] MEDS: LEVAQUIN PREMIX IV 500 MG 500 MG/100 ML BAG IV SCH (10:00)
[2019-03-29 10:12] LABS: FREE T4 (FREE THYROXINE) 1.35 ng/dL (0.76-1.46); TSH (3RD GENERATION) 0.879 uIU/mL (0.358-3.74)
[2019-03-29] MEDS: MILK OF MAGNESIA PO SCH ×2 (11:11→21:03)
[2019-03-29] MEDS: FLONASE NASAL SPRAY ENOSTRIL SCH ×2 (11:30→21:03)
[2019-03-29] MEDS: COLACE CAP 100 MG PO SCH (21:03)
[2019-03-30] MEDS: NS 1000 ML 1,000 ML IV SCH ×3 (06:05→20:58)
[2019-03-30] MEDS: LEVAQUIN PREMIX IV 500 MG 500 MG/100 ML BAG IV SCH (08:59)
[2019-03-30] MEDS: FLONASE NASAL SPRAY ENOSTRIL SCH ×2 (09:02→20:59)
[2019-03-30] MEDS: MILK OF MAGNESIA PO SCH ×2 (09:02→21:00)
[2019-03-30] MEDS: TYLENOL 325 MG TAB PO PRN (20:58)
[2019-03-30] MEDS: COLACE CAP 100 MG PO SCH (20:59)
[2019-03-31] MEDS: LEVAQUIN PREMIX IV 500 MG 500 MG/100 ML BAG IV SCH (09:16)
[2019-03-31] MEDS: FLONASE NASAL SPRAY ENOSTRIL SCH ×2 (09:16→20:29)
[2019-03-31] MEDS: MILK OF MAGNESIA PO SCH ×2 (09:17→22:47)
[2019-03-31] MEDS: NS 1000 ML 1,000 ML IV SCH ×3 (15:59→22:46)
[2019-03-31 18:25] VITALS: BP 109/75
[2019-03-31] MEDS: COLACE CAP 100 MG PO SCH (20:29)
[2019-04-01 02:26] LABS: ALBUMIN (SPEP) 2.68 g/dL (3.75-5.01); ALPHA-1 (SPEP) 0.59 g/dL (0.19-0.46); ALPHA-2 (SPEP) 1.18 g/dL (0.48-1.05); GAMMA (SPEP) 1.29 g/dL (0.62-1.51)
== END 2019-03-31 22:05 | disposition short-term general hospital (02) | DRG 864 ==
LOC: ER 17:56 → MED/SURG 20:24 → INTOOBSV 20:24 → OBSVTOIN 20:24 → MED/SURG 20:50
PROVIDERS: ADMIT Internal Medicine; ATTEND Obstetrics & Gynecology Obstetrics
DX: R50.9 Fever, unspecified; R94.31 Abnormal electrocardiogram [ECG] [EKG]; E87.1 Hypo-osmolality and hyponatremia; R79.82 Elevated C-reactive protein (CRP); D72.828 Other elevated white blood cell count; E86.0 Dehydration
CPT/HCPCS: 36415; 71020; 71046; 80053; 80074; 81001; 82150; 82270; 82533; 83605; 83690; 84165; 84439; 84443; 84481; 85025; 85060; 85652; 86140; 86141; 87040; 87476; 87798; 87801; 93005; 93306; 96365; 96367; 99284; A4222; J1956; J3490; J7030